=== PATIENT | male | born 1975 | race Caucasian/White ===

== ENCOUNTER 2017-03-28 16:28 | Emergency (ER) | payer SELFPAY ==
[2017-03-28 16:39] VITALS: BP 152/68; PULSE 69; TEMP 98.8; BMI 29.9
--- NOTE | 2017-03-28 17:05 | PDOC ---
History of Present Illness - General Chief Complaint: Foreign Body (FB) Stated Complaint: FOREIGN OBJECT STUCK IN EAR Time Seen by Provider: 03/28/17 16:49 History Source: Patient Exam Limitations: No Limitations - History of Present Illness Initial Comments: 03/28/17 17:00 States was using a Q-tip, and dislodge the cotton Qtip of that to his left ear canal. States tried to remove with his fingers but pushed it further in. No drainage, no fevers, no pain. Timing/Duration: 24 hours Severity: mild Associated Symptoms: reports: denies symptoms Past History - Travel Traveled outside of the country in the last 30 days: No Close contact w/someone who was outside of country & ill: No - Past Medical History Allergies/Adverse Reactions: Allergies Allergy/AdvReac Type Severity Reaction Status Date / Time No Known Allergies Allergy Verified 03/28/17 16:39 Home Medications: Ambulatory Orders NK [No Known Home Medication] 03/28/17 Other medical history: NONE - Suicide/Smoking/Psychosocial Hx Smoking Status: No Smoking History: Never smoked Number of Cigarettes Smoked Daily: 0 Hx Alcohol Use: Yes (SOCIAL) Drug/Substance Use Hx: No Review of Systems - Review of Systems Able to Perform ROS?: Yes Is the patient limited Frisian proficient: Yes Constitutional: Yes: See HPI. No: Symptoms Reported, Fever, Malaise HEENTM: Yes: Symptoms Reported, See HPI, Ear Pain (discomfort). No: Ear Discharge All Other Systems: Reviewed and Negative *Physical Exam - Vital Signs Last Vital Signs Temp Pulse Resp BP Pulse Ox 98.8 F 69 20 152/68 97 03/28/17 16:36 03/28/17 16:36 03/28/17 16:36 03/28/17 16:36 03/28/17 16:36 03/28/17 17:02 - Physical Exam General Appearance: Yes: Appropriately Dressed. No: Apparent Distress HEENT: positive: ANDER, TMs Normal (right TM normal and canal clear, left ear canal occluded with white foreign body), Pharynx Normal. negative: Rhinorrhea Neck: positive: Supple. negative: Tender Integumentary: positive: Normal Color, Dry, Warm Neurologic: positive: apron worker II-XII NML intact, Fully Oriented, Alert, Normal Mood/ Affect, Normal Response, Motor Strength 5/5 Procedures - Additional Procedures Additional Procedures: other (extracted white cotton foreign body from left ear canalwith no incident ) *DC/Admit/Observation/Transfer Diagnosis at time of Disposition: Foreign body in ear Qualifiers: Encounter type: initial encounter Laterality: left Qualified Code(s): T16.2XXA - Foreign body in left ear, initial encounter; T16.2XXA - Foreign body in left ear, initial encounter - Discharge Dispostion Disposition: HOME Condition at time of disposition: Stable Admit: No - Patient Instructions Printed Discharge Instructions: DI for Removal of Foreign Body From Ear Additional Instructions: Never put Q-tip in ear canal May use water or hydrogen peroxide for inner canal cleaning
== END 2017-03-28 17:09 | disposition home or self-care (01) ==
LOC: JERFT 16:28
PROC: 09C47ZZ Extirpation of Matter from Left External Auditory Canal, Via Natural or Artificial Opening (ICD-10-PCS; principal; 2017-03-28)
DX: T16.2XXA Foreign body in left ear, initial encounter (principal)
CPT/HCPCS: 99281-25

== ENCOUNTER 2019-04-11 19:05 | Emergency (ER) | payer SELFPAY ==
[2019-04-11 19:17] VITALS: BP 131/79; PULSE 61; TEMP 97; BMI 29.9
--- NOTE | 2019-04-11 19:47 | PDOC ---
History of Present Illness - General Chief Complaint: Ingrown toenail Stated Complaint: TOE PAIN Time Seen by Provider: 04/11/19 19:36 History Source: Patient - History of Present Illness Occurred: reports: other Severity: Yes: mild Lower Extremity Pain Location: left: 1st toe Past History - Past Medical History Allergies/Adverse Reactions: Allergies Allergy/AdvReac Type Severity Reaction Status Date / Time No Known Allergies Allergy Verified 04/11/19 19:17 Home Medications: Ambulatory Orders Clindamycin [Cleocin -] 300 mg PO Q6HPO #28 capsule 04/11/19 COPD: No - Psycho Social/Smoking Cessation Hx Smoking Status: No Smoking History: Never smoked Number of Cigarettes Smoked Daily: 0 Hx Alcohol Use: Yes (SOCIAL) Drug/Substance Use Hx: No Review of Systems - Review of Systems Constitutional: No: Chills, Fever *Physical Exam - Vital Signs Last Vital Signs Temp Pulse Resp BP Pulse Ox 97 F L 61 18 131/79 99 04/11/19 19:15 04/11/19 19:15 04/11/19 19:15 04/11/19 19:15 04/11/19 19:15 - Physical Exam General Appearance: Yes: Appropriately Dressed. No: Apparent Distress HEENT: positive: Normal Voice Neck: positive: Supple Respiratory/Chest: negative: Respiratory Distress Extremity: positive: Other (draining paronychia to L great toe, no erythema, no induration, no ingorwn nail visualized) Integumentary: positive: Dry, Warm Neurologic: positive: Fully Oriented, Alert, Normal Mood/Affect Medical Decision Making - Medical Decision Making 04/11/19 19:43 43-year-old male, denies past medical history, here with pain and swelling to L great toe. Patient states he cut his toenails 5 days ago and after that noticed progressive pain and discharge to site. No f/c. see exam Draining paronychia No need for I&D Tetanus UTD Local wound care here Dc w/ abx Wound check in 2 days Discharge - Discharge Information Problems reviewed: Yes Clinical Impression/Diagnosis: Paronychia due to ingrown nail Condition: Good Disposition: HOME - Additional Discharge Information Prescriptions: Clindamycin [Cleocin -] 300 mg PO Q6HPO #28 capsule - Follow up/Referral - Patient Discharge Instructions Patient Printed Discharge Instructions: DI for Paronychia Additional Instructions: Antibiotics as prescribed. Take Motrin for pain as needed Return in 2 days for wound check - Post Discharge Activity
== END 2019-04-11 19:54 | disposition home or self-care (01) ==
LOC: JERFT 19:05 → JER 19:05 → JERFT 19:54
DX: L03.032 Cellulitis of left toe (principal); L60.0 Ingrowing nail
CPT/HCPCS: 99282-25

== ENCOUNTER 2020-09-26 16:34 | Emergency (ER) | payer SELFPAY ==
[2020-09-26 16:52] VITALS: BP 143/82; PULSE 73; TEMP 98.6; BMI 29.9
[2020-09-26] MEDS ORDERED: KETOROLAC TROMETHAMINE 60 MG/2 ML VIAL IM ONE (17:06)
[2020-09-26] MEDS ORDERED: CYCLOBENZAPRINE HCL 10 MG TABLET (FP) PO ONE (17:06)
[2020-09-26] MEDS ORDERED: CYCLOBENZAPRINE HCL 10 MG TABLET (FP) ONE (17:41)
[2020-09-26] MEDS ORDERED: KETOROLAC TROMETHAMINE 60 MG/2 ML VIAL ONE (17:41)
== END 2020-09-26 18:34 | disposition home or self-care (01) ==
LOC: JERFT 16:34
PROC: 3E0234Z Introduction of Serum, Toxoid and Vaccine into Muscle, Percutaneous Approach (ICD-10-PCS; principal; 2020-09-26)
DX: M54.5 Low back pain (principal)
CPT/HCPCS: 72100-TC-FY; 99284-25

== ENCOUNTER 2020-12-19 15:23 | Emergency (ER) | payer OTHER ==
[2020-12-19 15:54] VITALS: BP 118/75; PULSE 64; TEMP 98.2; BMI 32.9
== END 2020-12-19 17:14 | disposition home or self-care (01) ==
LOC: JER 15:23
DX: S90.129A Contusion of unspecified lesser toe(s) without damage to nail, initial encounter (principal)
CPT/HCPCS: 73630-TC-LT; 73630-TC-RT-FY; 99284-25

== ENCOUNTER 2021-02-08 17:33 | Emergency (ER) | payer OTHER ==
[2021-02-08 17:46] VITALS: BP 111/66; PULSE 64; TEMP 98.6; BMI 35.2
[2021-02-08] MEDS ORDERED: FLUORESCEIN NA 1 EA STRIP ONE (18:55)
[2021-02-08] MEDS ORDERED: FLUORESCEIN NA 1 EA STRIP OD ONE (19:09)
[2021-02-08] MEDS ORDERED: TETRACAINE 0.5% HCL 0.6ML DROPPER.BOTTLE OD ONE (19:09)
== END 2021-02-08 19:45 | disposition home or self-care (01) ==
LOC: JERFT 17:33
DX: H01.001 Unspecified blepharitis right upper eyelid (principal)
CPT/HCPCS: 99283-25

== ENCOUNTER 2023-03-13 17:18 | Emergency (ER) | payer OTHER ==
[2023-03-13 17:23] VITALS: BP 117/65; PULSE 89; RESP 20; TEMP 98.2; BMI 34.3
== END 2023-03-13 19:30 | disposition home or self-care (01) ==
LOC: JERFT 17:18
DX: H92.01 Otalgia, right ear (principal); H93.8X1 Other specified disorders of right ear
CPT/HCPCS: 99283-25

== ENCOUNTER 2023-06-01 20:30 | Emergency (ER) | payer OTHER ==
[2023-06-01 20:35] VITALS: BP 124/68; PULSE 81; RESP 18; TEMP 97.7; BMI 28.3
[2023-06-01] MEDS ORDERED: NAPROXEN 500 MG TABLET PO ONE (21:37)
[2023-06-01] MEDS ORDERED: NAPROXEN 500 MG TABLET ONE (21:47)
== END 2023-06-01 22:42 | disposition home or self-care (01) ==
LOC: JERFT 20:30 → JER 20:30
DX: M79.672 Pain in left foot (principal); M72.2 Plantar fascial fibromatosis
CPT/HCPCS: 73630-TC-LT; 99283-25